=== PATIENT | female | born 1975 | race Caucasian/White ===

== ENCOUNTER 2020-02-28 12:38 | Outpatient (CLI) | payer BC | END 2020-02-28 12:39 | disposition home or self-care (01) | LOC: LAB 12:38 | PROVIDERS: ATTEND Nurse Practitioner Family | DX: R30.0 Dysuria (principal); R50.9 Fever, unspecified; R05 Cough; Z20.828 Contact with and (suspected) exposure to other viral communicable diseases | CPT/HCPCS: 87086 ==